=== PATIENT | male | born 1970 | race Caucasian/White ===

== ENCOUNTER 2017-03-13 11:48 | Inpatient (IN) | payer OTHER ==
[2017-03-13 12:20] VITALS: BMI 22.9
--- NOTE | 2017-03-13 15:42 | HP ---
CIWA Score - CIWA Score Nausea/Vomitin Muscle Tremors: 3 Anxiety: 4-Mod. Anxious/Guarded Agitation: 3 Paroxysmal Sweats: 3 Orientation: 3-Disoriented Date>2 days Tacttile Disturbances: 0-None Auditory Disturbances: 0-None Visual Disturbances: 0-None Headache: 0-None Present CIWA-Ar Total Score: 18 Admission ROS [facility] - HPI Chief Complaint: Withdrawal sx. Allergies/Adverse Reactions: Allergies Allergy/AdvReac Type Severity Reaction Status Date / Time No Known Allergies Allergy Verified 03/13/17 15:35 History of Present Illness: 46 y/o man with a long hx. of alcoholism is admitted for detox. Pt. has been in previous detox & out-pt rehab with almost 1 yr. sober. Exam Limitations: No Limitations - Ebola screening Have you traveled outside of the country in the last 21 days: No (N) Have you had contact with anyone from an Ebola affected area: No Have you been sick,other than usual withdrawal symptoms: No Do you have a fever: No - Review of Systems Constitutional: Diaphoresis EENT: reports: No Symptoms Reported Respiratory: reports: No Symptoms reported Cardiac: reports: No Symptoms Reported GI: reports: Nausea, Abdominal cramping : reports: No Symptoms Reported Musculoskeletal: reports: No Symptoms Reported Integumentary: reports: Sweating Neuro: reports: Tremors Endocrine: reports: No Symptoms Reported Hematology: reports: No Symptoms Reported Psychiatric: reports: No Sypmtoms Reported Other Systems: Reviewed and Negative Patient History - Patient Medical History Hx Anemia: No Hx Asthma: No Hx Chronic Obstructive Pulmonary Disease (COPD): No Hx Cancer: No Hx Cardiac Disorders: No Hx Congestive Heart Failure: No Hx Hypertension: No Hx Hypercholesterolemia: No Hx Pacemaker: No HX Cerebrovascular Accident: No Hx Seizures: No Hx Dementia: No Hx Diabetes: No Hx Gastrointestinal Disorders: No Hx Liver Disease: No Hx Genitourinary Disorders: No Hx Sexually Transmitted Disorders: No Hx Renal Disease (ESRD): No Hx Thyroid Disease: No Hx Human Immunodeficiency Virus (HIV): No Hx Hepatitis C: No Hx Depression: Yes (no meds) Hx Suicide Attempt: No Hx Bipolar Disorder: No Hx Schizophrenia: No - Patient Surgical History Past Surgical History: No - PPD History Previous Implant?: Yes Documented Results: Positive w/o proof Implanted On Prior [facility] Admission?: No PPD to be Administered?: No - Smoking Cessation Smoking history: Current every day smoker Aproximately how many cigarettes per day: 15 Hx Chewing Tobacco Use: No Initiated information on smoking cessation: Yes 'Breaking Loose' booklet given: 03/13/17 - Substance & Tx. History Hx Alcohol Use: Yes Hx Substance Use: Yes Substance Use Type: Alcohol, Cocaine Hx Substance Use Treatment: Yes (Alcohol & Cocaine detox, last ?) - Substances Abused Alcohol Route: Oral Frequency: Daily Amount used: Rum 2 pints Age of first use: 18 Date of Last Use: 03/13/17 Cocaine Route: Inhalation Frequency: Daily Amount used: 1-2 gm Age of first use: 20 Date of Last Use: 03/13/17 Family Disease History - Family Disease History Family Disease History: Diabetes: Grandparent (prostate), Heart Disease: Mother (HTN), CA: Grandparent Admission Physical Exam [facility] - Vital Signs Vital Signs: Vital Signs - 24 hr 03/13/17 12:17 Temperature 96.6 F L Pulse Rate 91 H Respiratory 18 Rate Blood Pressure 111/72 - Physical General Appearance: Yes: Alcohol on Breath, Tremorous, Irritable, Sweating, Anxious HEENTM: Yes: Within Normal Limits Respiratory: Yes: Chest Non-Tender, Lungs Clear, Normal Breath Sounds Neck: Yes: Supple Breast: Yes: Breast Exam Deferred Cardiology: Yes: Regular Rhythm, Regular Rate, S1, S2 Abdominal: Yes: Normal Bowel Sounds, Non Tender, Flat Genitourinary: Yes: Within Normal Limits Back: Yes: Within Normal Limits Musculoskeletal: Yes: Within Normal Limits Extremities: Yes: Tremors Neurological: Yes: Fully Oriented, Alert Integumentary: Yes: Diaphoresis Lymphatic: Yes: Within Normal Limits - Diagnostic (1) Alcohol dependence with uncomplicated withdrawal Current Visit: Yes Status: Acute (2) Cocaine dependence, uncomplicated Current Visit: Yes Status: Acute Cleared for Admission [facility] - Detox or Rehab [facility] Level of Care: Medically Managed Detox Regimen/Protocol: Librium [facility] Breath Alcohol Content Breath Alcohol Content: 30 Urine Drug Screen - Results Drug Screen Negative: No Urine Drug Screen Results: ELSA-Cocaine, BZO-Benzodiazepines
[2017-03-13] MEDS ORDERED: MAG HYDROX/AL HYDROX/SIMETH 30 ML UNIT-DOSE CUP PO PRN (15:51)
[2017-03-13] MEDS ORDERED: MAGNESIUM HYDROX 2400MG/30ML ORAL SUSPENSION 30 ML CUP PO PRN (15:51)
[2017-03-13] MEDS ORDERED: MENTHOL/PHENOL 1 EACH UD MM PRN (15:51)
[2017-03-13] MEDS ORDERED: chlordiazePOXIDE HCL 25 MG CAPSULE PO PRN (15:51)
[2017-03-13] MEDS ORDERED: chlordiazePOXIDE HCL 25 MG CAPSULE PO ONE (15:51)
[2017-03-13] MEDS ORDERED: P-EPHED 60MG/TRIPROLIDI 2.5MG TABLET PO PRN (15:51)
[2017-03-13] MEDS ORDERED: hydrOXYzine PAMOATE 50 MG CAPSULE (FP) PO PRN (15:51)
[2017-03-13] MEDS ORDERED: ACETAMINOPHEN 325 MG TABLET (FP) PO PRN (15:51)
[2017-03-13] MEDS ORDERED: guaiFENesin/D-METHORPHAN HB 10 ML UNIT-DOSE CUPS PO PRN (15:51)
[2017-03-13] MEDS ORDERED: NICOTINE POLACRILEX 2 MG GUM BC PRN (15:51)
[2017-03-13] MEDS ORDERED: MAGNESIUM CITRATE 300 ML BOTTLE PO PRN (15:51)
[2017-03-13] MEDS ORDERED: IBUPROFEN 400 MG TABLET (FP) PO PRN (15:51)
[2017-03-13] MEDS ORDERED: LOPERAMIDE HCL 2 MG CAPSULE PO PRN (15:51)
[2017-03-13] MEDS: chlordiazePOXIDE HCL 25 MG CAPSULE PO SCH ×2 (18:39→22:27)
[2017-03-13] MEDS: NICOTINE 21 MG/24 HOURS TOPICAL PATCH TD SCH (18:41)
[2017-03-13] MEDS: THIAMINE HCL 100 MG TABLET (FP) PO SCH (22:27)
[2017-03-14] MEDS: chlordiazePOXIDE HCL 25 MG CAPSULE PO SCH ×4 (06:09→22:59)
[2017-03-14 10:32] LABS: HEMATOCRIT 44.4 % (35.4-49); HEMOGLOBIN 15.3 GM/dL (11.7-16.9); MCH 29.9 pg (25.7-33.7); MCHC 34.4 g/dl (32.0-35.9); MEAN PLT VOLUME 8.8 fl (7.5-11.1); PLATELET COUNT 278 K/MM3 (134-434); RBC 5.11 M/mm3 (4.00-5.60); RDW 14.9 % (11.9-15.9); WHITE BLOOD COUNT 7.1 K/mm3 (4.0-10.0)
[2017-03-14] MEDS: PRENATAL VITAMINS W/ FOLIC ACID TABLET (FP) PO SCH (10:40)
[2017-03-14] MEDS: NICOTINE 21 MG/24 HOURS TOPICAL PATCH TD SCH (10:40)
[2017-03-14 10:48] LABS: ALBUMIN 3.4 g/dl (3.4-5.0); ALK PHOS 55 U/L (45-117); ANION GAP 6 (8-16); BILIRUBIN,TOTAL 1.3 mg/dL (0.2-1.0); BLOOD UREA NITROGEN 18 mg/dL (7-18); CALCIUM 8.3 mg/dL (8.5-10.1); CHLORIDE 105 mmol/L (98-107); CO2 30 mmol/L (21-32); GLUCOSE,RANDOM 80 mg/dL (74-106); POTASSIUM 3.8 mmol/L (3.5-5.1); SGOT/AST 203 U/L (15-37); SGPT/ALT 104 U/L (12-78); SODIUM 141 mmol/L (136-145); TOT PROT 7.2 g/dl (6.4-8.2)
[2017-03-14 12:33] LABS: URINE APPEARANCE CLEAR; URINE BILIRUBIN NEGATIVE (NEGATIVE); URINE BLOOD NEGATIVE (NEGATIVE); URINE COLOR DKYELLOW; URINE GLUCOSE (UA) NEGATIVE (NEGATIVE); URINE KETONE NEGATIVE (NEGATIVE); URINE LEUK ESTERASE NEGATIVE (NEGATIVE); URINE NITRITE NEGATIVE (NEGATIVE); URINE PROTEIN NEGATIVE (NEGATIVE)
--- NOTE | 2017-03-14 12:52 | EKG ---
Test Reason : Blood Pressure : / mmHG Vent. Rate : 083 BPM Atrial Rate : 083 BPM P-R Int : 154 ms QRS Dur : 084 ms QT Int : 402 ms P-R-T Axes : 070 073 062 degrees QTc Int : 472 ms NORMAL SINUS RHYTHM POSSIBLE LEFT ATRIAL ENLARGEMENT LEFT VENTRICULAR HYPERTROPHY ABNORMAL ECG NO PREVIOUS ECGS AVAILABLE Confirmed by Enrike Mclean ([id number]) on 03/14/2017 12:52:28 PM Referred By: Confirmed By:Enrike Mclean
--- NOTE | 2017-03-14 15:56 | PN ---
S CIWA - CIWA Score Nausea/Vomitin Muscle Tremors: 3 Anxiety: 4-Mod. Anxious/Guarded Agitation: 4-Moderately Restless Paroxysmal Sweats: 3 Orientation: 0-Oriented Tacttile Disturbances: 0-None Auditory Disturbances: 0-None Visual Disturbances: 0-None Headache: 0-None Present CIWA-Ar Total Score: 17 [facility] Progress Note (SOAP) Subjective: Agitated, anxious, interrupted sleep. Patient requesting to see psychiatrist for depression. Objective: 03/14/17 15:55 Last Vital Signs Temp Pulse Resp BP Pulse Ox 97.0 F L 87 18 101/70 03/14/17 13:24 03/14/17 13:24 03/14/17 13:24 03/14/17 13:24 Laboratory Tests 03/14/17 03/14/17 03/14/17 07:40 07:40 07:40 WBC 7.1 RBC 5.11 Hgb 15.3 Hct 44.4 MCV 87.0 MCH 29.9 MCHC 34.4 RDW 14.9 Plt Count 278 MPV 8.8 Sodium 141 Potassium 3.8 Chloride 105 Carbon Dioxide 30 Anion Gap 6 L BUN 18 Creatinine 1.0 Creat Clearance w eGFR > 60 Random Glucose 80 Calcium 8.3 L Total Bilirubin 1.3 H AST 203 H ALT 104 H Alkaline Phosphatase 55 Total Protein 7.2 Albumin 3.4 Urine Color Urine Appearance Urine pH Ur Specific [place] Urine Protein Urine Glucose (UA) Urine Ketones Urine Blood Urine Nitrite Urine Bilirubin Urine Urobilinogen Ur Leukocyte Esterase RPR Titer Nonreactive HIV 1&2 Antibody Screen HIV P24 Antigen 03/14/17 03/14/17 07:40 10:56 WBC RBC Hgb Hct MCV MCH MCHC RDW Plt Count MPV Sodium Potassium Chloride Carbon Dioxide Anion Gap BUN Creatinine Creat Clearance w eGFR Random Glucose Calcium Total Bilirubin AST ALT Alkaline Phosphatase Total Protein Albumin Urine Color Dkyellow Urine Appearance Clear Urine pH 5.0 Ur Specific [place] 1.030 Urine Protein Negative Urine Glucose (UA) Negative Urine Ketones Negative Urine Blood Negative Urine Nitrite Negative Urine Bilirubin Negative Urine Urobilinogen 2.0 Ur Leukocyte Esterase Negative RPR Titer HIV 1&2 Antibody Screen Negative HIV P24 Antigen Negative Labs noted: AST/ALT elevated (denies h/o hepatitis C) Assessment: 03/14/17 15:55 Withdrawal symptoms Noted with elevated LFTs Plan: Continue detox Elevated LFTs: repeat AST/ALT, send hepatitis c panel
[2017-03-14] MEDS: THIAMINE HCL 100 MG TABLET (FP) PO SCH (22:59)
[2017-03-15] MEDS: chlordiazePOXIDE HCL 25 MG CAPSULE PO SCH ×2 (05:41→10:51)
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
[2017-03-15] MEDS: NICOTINE 21 MG/24 HOURS TOPICAL PATCH TD SCH (10:51)
[2017-03-15] MEDS: PRENATAL VITAMINS W/ FOLIC ACID TABLET (FP) PO SCH (10:51)
--- NOTE | 2017-03-15 12:23 | PN ---
[facility] CIWA - CIWA Score Nausea/Vomitin-No Nausea/No Vomiting Muscle Tremors: 4-Moderate,w/Arms Extend Anxiety: 3 Agitation: 3 Paroxysmal Sweats: 3 Orientation: 0-Oriented Tacttile Disturbances: 2-Mild Itch/Numbness/Burn Auditory Disturbances: 0-None Visual Disturbances: 3-Moderate Sensitivity Headache: 0-None Present CIWA-Ar Total Score: 18 S Progress Note (SOAP) Subjective: Interrupted Sleep, Fatigue, Body Aches, Tremors. Objective: PT. A & O X 3, OBSERVED AMBULATING ON UNIT. NO ACUTE DISTRESS. 03/15/17 12:22 Vital Signs Temperature 96.5 F L 03/15/17 09:35 Pulse Rate 79 03/15/17 09:35 Respiratory Rate 18 03/15/17 09:35 Blood Pressure 103/66 03/15/17 09:35 O2 Sat by Pulse Oximetry (%) Laboratory Tests 03/14/17 03/14/17 03/14/17 07:40 07:40 07:40 WBC 7.1 RBC 5.11 Hgb 15.3 Hct 44.4 MCV 87.0 MCH 29.9 MCHC 34.4 RDW 14.9 Plt Count 278 MPV 8.8 Sodium 141 Potassium 3.8 Chloride 105 Carbon Dioxide 30 Anion Gap 6 L BUN 18 Creatinine 1.0 Creat Clearance w eGFR > 60 Random Glucose 80 Calcium 8.3 L Total Bilirubin 1.3 H AST 203 H ALT 104 H Alkaline Phosphatase 55 Total Protein 7.2 Albumin 3.4 Urine Color Urine Appearance Urine pH Ur Specific [place] Urine Protein Urine Glucose (UA) Urine Ketones Urine Blood Urine Nitrite Urine Bilirubin Urine Urobilinogen Ur Leukocyte Esterase RPR Titer Nonreactive HIV 1&2 Antibody Screen HIV P24 Antigen 03/14/17 03/14/17 07:40 10:56 WBC RBC Hgb Hct MCV MCH MCHC RDW Plt Count MPV Sodium Potassium Chloride Carbon Dioxide Anion Gap BUN Creatinine Creat Clearance w eGFR Random Glucose Calcium Total Bilirubin AST ALT Alkaline Phosphatase Total Protein Albumin Urine Color Dkyellow Urine Appearance Clear Urine pH 5.0 Ur Specific [place] 1.030 Urine Protein Negative Urine Glucose (UA) Negative Urine Ketones Negative Urine Blood Negative Urine Nitrite Negative Urine Bilirubin Negative Urine Urobilinogen 2.0 Ur Leukocyte Esterase Negative RPR Titer HIV 1&2 Antibody Screen Negative HIV P24 Antigen Negative LABS NOTED. HCV AB RESULTS AND RESULTS OF REPEAT AST, ALT PENDING. 03/15/17 12:23 Assessment: 03/15/17 12:22 WITHDRAWAL SYMPTOMS. Plan: CONTINUED DETOX. INCREASE DAILY PO FLUID INTAKE.
[2017-03-15] MEDS: chlordiazePOXIDE 5 MG CAPSULE PO SCH ×2 (17:25→22:41)
[2017-03-15 17:51] LABS: SGOT/AST 108 U/L (15-37); SGPT/ALT 89 U/L (12-78)
[2017-03-15] MEDS: ZOLPIDEM TARTRATE 10 MG TABLET (PARK CARE ONLY) PO PRN (22:41)
[2017-03-15] MEDS: THIAMINE HCL 100 MG TABLET (FP) PO SCH (22:41)
[2017-03-16] MEDS: chlordiazePOXIDE 5 MG CAPSULE PO SCH ×2 (06:43→10:49)
[2017-03-16] MEDS ORDERED: METHYL SALICYLATE/MENTHOL OINT 30 GM TUBE TP SCH (10:00)
[2017-03-16] MEDS: PRENATAL VITAMINS W/ FOLIC ACID TABLET (FP) PO SCH (10:49)
[2017-03-16] MEDS: NICOTINE 21 MG/24 HOURS TOPICAL PATCH TD SCH (10:49)
--- NOTE | 2017-03-16 14:01 | PN ---
[facility] Progress Note (SOAP) Subjective: Body Aches, Anxious, Fatigue. Objective: PT. A & O X 3, OBSERVED AMBULATING ON UNIT. NO ACUTE DISTRESS. 03/16/17 14:00 Vital Signs Temperature 97.4 F L 03/16/17 09:54 Pulse Rate 89 03/16/17 09:54 Respiratory Rate 18 03/16/17 09:54 Blood Pressure 117/74 03/16/17 09:54 O2 Sat by Pulse Oximetry (%) Laboratory Tests 03/14/17 03/14/17 03/14/17 07:40 07:40 07:40 WBC 7.1 RBC 5.11 Hgb 15.3 Hct 44.4 MCV 87.0 MCH 29.9 MCHC 34.4 RDW 14.9 Plt Count 278 MPV 8.8 Sodium 141 Potassium 3.8 Chloride 105 Carbon Dioxide 30 Anion Gap 6 L BUN 18 Creatinine 1.0 Creat Clearance w eGFR > 60 Random Glucose 80 Calcium 8.3 L Total Bilirubin 1.3 H AST 203 H ALT 104 H Alkaline Phosphatase 55 Total Protein 7.2 Albumin 3.4 Urine Color Urine Appearance Urine pH Ur Specific [place] Urine Protein Urine Glucose (UA) Urine Ketones Urine Blood Urine Nitrite Urine Bilirubin Urine Urobilinogen Ur Leukocyte Esterase RPR Titer Nonreactive Hepatitis C Antibody HIV 1&2 Antibody Screen HIV P24 Antigen 03/14/17 03/14/17 03/15/17 07:40 10:56 09:00 WBC RBC Hgb Hct MCV MCH MCHC RDW Plt Count MPV Sodium Potassium Chloride Carbon Dioxide Anion Gap BUN Creatinine Creat Clearance w eGFR Random Glucose Calcium Total Bilirubin AST 108 H D ALT 89 H Alkaline Phosphatase Total Protein Albumin Urine Color Dkyellow Urine Appearance Clear Urine pH 5.0 Ur Specific [place] 1.030 Urine Protein Negative Urine Glucose (UA) Negative Urine Ketones Negative Urine Blood Negative Urine Nitrite Negative Urine Bilirubin Negative Urine Urobilinogen 2.0 Ur Leukocyte Esterase Negative RPR Titer Hepatitis C Antibody HIV 1&2 Antibody Screen Negative HIV P24 Antigen Negative 03/15/17 09:00 WBC RBC Hgb Hct MCV MCH MCHC RDW Plt Count MPV Sodium Potassium Chloride Carbon Dioxide Anion Gap BUN Creatinine Creat Clearance w eGFR Random Glucose Calcium Total Bilirubin AST ALT Alkaline Phosphatase Total Protein Albumin Urine Color Urine Appearance Urine pH Ur Specific [place] Urine Protein Urine Glucose (UA) Urine Ketones Urine Blood Urine Nitrite Urine Bilirubin Urine Urobilinogen Ur Leukocyte Esterase RPR Titer Hepatitis C Antibody 0.1 HIV 1&2 Antibody Screen HIV P24 Antigen LABS NOTED. Assessment: 03/16/17 14:01 WITHDRAWAL SYMPTOMS. Plan: CONTINUE DETOX.
[2017-03-16] MEDS: chlordiazePOXIDE HCL 10 MG CAPSULE PO SCH ×2 (18:01→22:17)
[2017-03-16] MEDS: THIAMINE HCL 100 MG TABLET (FP) PO SCH (22:17)
[2017-03-16] MEDS: ZOLPIDEM TARTRATE 10 MG TABLET (PARK CARE ONLY) PO PRN (22:17)
[2017-03-17] MEDS: chlordiazePOXIDE HCL 10 MG CAPSULE PO SCH (05:40)
[2017-03-17 06:09] VITALS: BP 125/76; PULSE 74; TEMP 98
--- NOTE | 2017-03-17 14:18 | DS ---
[facility] Detox Discharge Summary Admission Date: 03/13/17 Discharge Date: 03/17/17 - History Present History: Alcohol Dependence, Cocaine Dependence Additional Comments: PATIENT GOING HOME. PATIENT ADVISED TO CONSIDER LOCAL 12-STEP / NA / AA OUTPATIENT SUPPORT GROUPS FOR AFTERCARE. PATIENT WAS DISCAHRGED FROM DETOX UNIT IN STABLE MEDICAL CONDITION. Pertinent Past History: Insomnia, Depression. - Physical Exam Results Vital Signs: Vital Signs Temperature 98 F 03/17/17 06:09 Pulse Rate 74 03/17/17 06:09 Respiratory Rate 18 03/17/17 06:09 Blood Pressure 125/76 03/17/17 06:09 O2 Sat by Pulse Oximetry (%) Pertinent Admission Physical Exam Findings: WITHDRAWAL SYMPTOMS. Laboratory Tests 03/14/17 03/14/17 03/14/17 07:40 07:40 07:40 WBC 7.1 RBC 5.11 Hgb 15.3 Hct 44.4 MCV 87.0 MCH 29.9 MCHC 34.4 RDW 14.9 Plt Count 278 MPV 8.8 Sodium 141 Potassium 3.8 Chloride 105 Carbon Dioxide 30 Anion Gap 6 L BUN 18 Creatinine 1.0 Creat Clearance w eGFR > 60 Random Glucose 80 Calcium 8.3 L Total Bilirubin 1.3 H AST 203 H ALT 104 H Alkaline Phosphatase 55 Total Protein 7.2 Albumin 3.4 Urine Color Urine Appearance Urine pH Ur Specific [place] Urine Protein Urine Glucose (UA) Urine Ketones Urine Blood Urine Nitrite Urine Bilirubin Urine Urobilinogen Ur Leukocyte Esterase RPR Titer Nonreactive Hepatitis C Antibody HIV 1&2 Antibody Screen HIV P24 Antigen 03/14/17 03/14/17 03/15/17 07:40 10:56 09:00 WBC RBC Hgb Hct MCV MCH MCHC RDW Plt Count MPV Sodium Potassium Chloride Carbon Dioxide Anion Gap BUN Creatinine Creat Clearance w eGFR Random Glucose Calcium Total Bilirubin AST 108 H D ALT 89 H Alkaline Phosphatase Total Protein Albumin Urine Color Dkyellow Urine Appearance Clear Urine pH 5.0 Ur Specific [place] 1.030 Urine Protein Negative Urine Glucose (UA) Negative Urine Ketones Negative Urine Blood Negative Urine Nitrite Negative Urine Bilirubin Negative Urine Urobilinogen 2.0 Ur Leukocyte Esterase Negative RPR Titer Hepatitis C Antibody HIV 1&2 Antibody Screen Negative HIV P24 Antigen Negative 03/15/17 09:00 WBC RBC Hgb Hct MCV MCH MCHC RDW Plt Count MPV Sodium Potassium Chloride Carbon Dioxide Anion Gap BUN Creatinine Creat Clearance w eGFR Random Glucose Calcium Total Bilirubin AST ALT Alkaline Phosphatase Total Protein Albumin Urine Color Urine Appearance Urine pH Ur Specific [place] Urine Protein Urine Glucose (UA) Urine Ketones Urine Blood Urine Nitrite Urine Bilirubin Urine Urobilinogen Ur Leukocyte Esterase RPR Titer Hepatitis C Antibody 0.1 HIV 1&2 Antibody Screen HIV P24 Antigen LABS NOTED. - Treatment Hospital Course: Detox Protocol Followed, Detoxed Safely, Responded well, Discharged Condition Good Patient has Accepted a Rehab Referral to: PT GOING HOME; ADVISED TO CONSIDER LOCAL 12-STEP/NA/AA SUPPORT GROUPS. - Medication Discharge Medications: Ambulatory Orders NK [No Known Home Medication] 03/13/17 - Diagnosis (1) Alcohol dependence with uncomplicated withdrawal Status: Acute (2) Cocaine dependence, uncomplicated Status: Acute (3) Insomnia Status: Acute Qualifiers: Insomnia type: unspecified Qualified Code(s): G47.00 - Insomnia, unspecified - AMA Did Patient Leave Against Medical Advice: No
== END 2017-03-17 09:18 | disposition home or self-care (01) | DRG 774 ==
LOC: YASAS 11:48 → Y3N 16:19
PROVIDERS: ADMIT Internal Medicine; ATTEND Internal Medicine
PROC: HZ2ZZZZ Detoxification Services for Substance Abuse Treatment (ICD-10-PCS; principal; 2017-03-13)
DX: F10.230 Alcohol dependence with withdrawal, uncomplicated (principal); F14.20 Cocaine dependence, uncomplicated; F17.210 Nicotine dependence, cigarettes, uncomplicated; G47.00 Insomnia, unspecified; R94.5 Abnormal results of liver function studies
CPT/HCPCS: 36415; 71046-TC; 80053; 81003; 84450; 84460; 85027; 86593; 86803; 87389; 93005; 93010

== ENCOUNTER 2017-05-06 12:08 | Inpatient (IN) | payer OTHER ==
[2017-05-06 13:59] VITALS: BMI 24.2
--- NOTE | 2017-05-06 19:34 | HP ---
CIWA Score - CIWA Score Nausea/Vomitin-Mild Nausea/No Vomiting Muscle Tremors: 3 Anxiety: 4-Mod. Anxious/Guarded Agitation: 0-Normal Activity Paroxysmal Sweats: 1-Minimal Palms Moist Orientation: 1-Uncertain about Date Tacttile Disturbances: 1-Very Mild Itch/Numbness Auditory Disturbances: 3-Moderate Harsh/Frighten Visual Disturbances: 1-Very Mild Sensitivity Headache: 1-Very Mild CIWA-Ar Total Score: 16 Admission [facility] - HPI Chief Complaint: withdrawal symptoms. "I need to get my life back, I don't feel well, my mother is suffering too much and my family." Allergies/Adverse Reactions: Allergies Allergy/AdvReac Type Severity Reaction Status Date / Time No Known Allergies Allergy Verified 05/06/17 17:42 History of Present Illness: 47 yo male with hx of cocaine, alcohol and nicotine dependence is here seeking detox. PMHX: depression, insomnia and anxiety. Longest period of sobriety 1 year during 2009 while connected to a [employer] group. Denies history of overdose, or seizures, or blackouts. Last detox [facility] 2017 - 03/17/2017. Denies suicidal / homicidal ideation or suicide attempts. Exam Limitations: No Limitations - Ebola screening Have you traveled outside of the country in the last 21 days: No Have you had contact with anyone from an Ebola affected area: No Have you been sick,other than usual withdrawal symptoms: No Do you have a fever: No - Review of Systems Constitutional: Chills, Loss of Appetite, Changes in sleep EENT: reports: Blurred Vision (uses glasses) Respiratory: reports: No Symptoms reported Cardiac: reports: No Symptoms Reported GI: reports: Nausea, Poor Appetite, Poor Fluid Intake : reports: No Symptoms Reported Musculoskeletal: reports: Joint Pain (chronic back, shoulder pain , reports pain relieve with drinking alcohol) Integumentary: reports: No Symptoms Reported Neuro: reports: Weakness Endocrine: reports: Excessive Sweating Hematology: reports: No Symptoms Reported Psychiatric: reports: Orientated x3, Anxious, Depressed Other Systems: Reviewed and Negative Patient History - Patient Medical History Hx Anemia: No Hx Asthma: No Hx Chronic Obstructive Pulmonary Disease (COPD): No Hx Cancer: No Hx Cardiac Disorders: No Hx Congestive Heart Failure: No Hx Hypertension: No Hx Hypercholesterolemia: No Hx Pacemaker: No HX Cerebrovascular Accident: No Hx Seizures: No Hx Dementia: No Hx Diabetes: No Hx Gastrointestinal Disorders: No Hx Liver Disease: No Hx Genitourinary Disorders: No Hx Sexually Transmitted Disorders: No Hx Renal Disease (ESRD): No Hx Thyroid Disease: No Hx Human Immunodeficiency Virus (HIV): No (Last tested March 2017) Hx Hepatitis C: No Hx Depression: Yes (no meds) Hx Suicide Attempt: No Hx Bipolar Disorder: No Hx Schizophrenia: No - Patient Surgical History Past Surgical History: No Hx Neurologic Surgery: No Hx Cataract Extraction: No Hx Cardiac Surgery: No Hx Lung Surgery: No Hx Breast Surgery: No Hx Breast Biopsy: No Hx Abdominal Surgery: No Hx Appendectomy: No Hx Cholecystectomy: No Hx Genitourinary Surgery: No Hx Section: No Hx Orthopedic Surgery: No Anesthesia Reaction: No - PPD History Previous Implant?: No - Smoking Cessation Smoking history: Current every day smoker Aproximately how many cigarettes per day: 15 Hx Chewing Tobacco Use: No Initiated information on smoking cessation: Yes 'Breaking Loose' booklet given: 05/06/17 - Substance & Tx. History Hx Alcohol Use: Yes Hx Substance Use: Yes Substance Use Type: Alcohol, Cocaine Hx Substance Use Treatment: Yes ([facility] 03/13/17 - 03/17/2017) - Substances Abused Cocaine Route: Smoking Frequency: Daily Amount used: 3 bags Age of first use: 19 Date of Last Use: 05/04/17 Alcohol Route: Oral Frequency: Daily Amount used: 12/15oz beer Age of first use: 16 Date of Last Use: 05/05/17 Family Disease History - Family Disease History Family Disease History: Diabetes: Grandparent (prostate), Heart Disease: Mother (HTN), [place]: Grandparent Admission Physical Exam S - Vital Signs Vital Signs: Vital Signs - 24 hr 05/06/17 13:57 Temperature 96 F L Pulse Rate 80 Respiratory 19 Rate Blood Pressure 116/78 - Physical General Appearance: Yes: Disheveled - Diagnostic (1) Anxious mood Current Visit: Yes Status: Acute (2) Alcohol dependence with uncomplicated withdrawal Current Visit: No Status: Acute (3) Cocaine dependence, uncomplicated Current Visit: No Status: Acute (4) Insomnia Current Visit: No Status: Acute Qualifiers: Insomnia type: unspecified Qualified Code(s): G47.00 - Insomnia, unspecified Cleared for Admission [facility] - Detox or Rehab [facility] Level of Care: Medically Managed Detox Regimen/Protocol: Librium [facility] Breath Alcohol Content Breath Alcohol Content: 0 Urine Drug Screen - Results Drug Screen Negative: No Urine Drug Screen Results: ELSA-Cocaine, BZO-Benzodiazepines
[2017-05-06] MEDS ORDERED: guaiFENesin/D-METHORPHAN HB 10 ML UNIT-DOSE CUPS PO PRN (20:00)
[2017-05-06] MEDS ORDERED: NICOTINE POLACRILEX 2 MG GUM BUC PRN (20:00)
[2017-05-06] MEDS ORDERED: LOPERAMIDE HCL 2 MG CAPSULE PO PRN (20:00)
[2017-05-06] MEDS ORDERED: ACETAMINOPHEN 325 MG TABLET (FP) PO PRN (20:00)
[2017-05-06] MEDS ORDERED: MAGNESIUM HYDROX 2400MG/30ML ORAL SUSPENSION 30 ML CUP PO PRN (20:00)
[2017-05-06] MEDS ORDERED: P-EPHED 60MG/TRIPROLIDI 2.5MG TABLET PO PRN (20:00)
[2017-05-06] MEDS ORDERED: MENTHOL/PHENOL 1 EACH UD MM PRN (20:00)
[2017-05-06] MEDS ORDERED: IBUPROFEN 400 MG TABLET (FP) PO PRN (20:00)
[2017-05-06] MEDS ORDERED: hydrOXYzine PAMOATE 50 MG CAPSULE (FP) PO PRN (20:00)
[2017-05-06] MEDS ORDERED: chlordiazePOXIDE HCL 25 MG CAPSULE PO PRN (20:00)
[2017-05-06] MEDS ORDERED: MAG HYDROX/AL HYDROX/SIMETH 30 ML UNIT-DOSE CUP PO PRN (20:00)
[2017-05-06] MEDS ORDERED: MAGNESIUM CITRATE 300 ML BOTTLE PO PRN (20:00)
[2017-05-06] MEDS ORDERED: chlordiazePOXIDE HCL 25 MG CAPSULE PO ONE (20:00)
[2017-05-06] MEDS: chlordiazePOXIDE HCL 25 MG CAPSULE PO SCH (21:53)
[2017-05-06] MEDS: THIAMINE HCL 100 MG TABLET (FP) PO SCH (21:53)
[2017-05-07 00:33] LABS: URINE APPEARANCE CLEAR; URINE BILIRUBIN NEGATIVE (NEGATIVE); URINE BLOOD NEGATIVE (NEGATIVE); URINE COLOR LTYELLOW; URINE GLUCOSE (UA) NEGATIVE (NEGATIVE); URINE KETONE NEGATIVE (NEGATIVE); URINE LEUK ESTERASE NEGATIVE (NEGATIVE); URINE NITRITE NEGATIVE (NEGATIVE); URINE PROTEIN NEGATIVE (NEGATIVE); URINE UROBILINOGEN NEGATIVE mg/dL (0.2-1.0)
[2017-05-07] MEDS: chlordiazePOXIDE HCL 25 MG CAPSULE PO SCH ×4 (05:58→22:14)
[2017-05-07] MEDS: PRENATAL VITAMINS W/ FOLIC ACID TABLET (FP) PO SCH (10:08)
[2017-05-07] MEDS: NICOTINE 14 MG/24 HOURS TOPICAL PATCH TD SCH (10:10)
[2017-05-07 10:14] LABS: HEMATOCRIT 39.7 % (35.4-49); HEMOGLOBIN 14.4 GM/dL (11.7-16.9); MCH 31.2 pg (25.7-33.7); MCHC 36.3 g/dl (32.0-35.9); MEAN PLT VOLUME 8.9 fl (7.5-11.1); PLATELET COUNT 258 K/MM3 (134-434); RBC 4.62 M/mm3 (4.00-5.60); RDW 13.9 % (11.9-15.9); WHITE BLOOD COUNT 5.2 K/mm3 (4.0-10.0)
[2017-05-07 10:25] LABS: ALBUMIN 3.2 g/dl (3.4-5.0); ANION GAP 6 (8-16); BILIRUBIN,TOTAL 0.6 mg/dL (0.2-1.0); BLOOD UREA NITROGEN 9 mg/dL (7-18); CHLORIDE 107 mmol/L (98-107); CO2 29 mmol/L (21-32); CREATININE 0.9 mg/dL (0.7-1.3); GLUCOSE,RANDOM 106 mg/dL (74-106); POTASSIUM 3.7 mmol/L (3.5-5.1); SGOT/AST 18 U/L (15-37); SGPT/ALT 21 U/L (12-78); SODIUM 142 mmol/L (136-145); TOT PROT 6.6 g/dl (6.4-8.2)
[2017-05-07 10:26] LABS: ALK PHOS 47 U/L (45-117)
--- NOTE | 2017-05-07 11:57 | PN ---
S CIWA - CIWA Score Nausea/Vomitin Muscle Tremors: 2 Anxiety: 3 Agitation: 2 Paroxysmal Sweats: 3 Orientation: 0-Oriented Tacttile Disturbances: 1-Very Mild Itch/Numbness Auditory Disturbances: 0-None Visual Disturbances: 0-None Headache: 0-None Present CIWA-Ar Total Score: 13 S Progress Note (SOAP) Subjective: interrupted sleep, sweats, anxious Objective: 05/07/17 11:56 Vital Signs Temperature 96.8 F L 05/07/17 10:34 Pulse Rate 71 05/07/17 10:34 Respiratory Rate 18 05/07/17 10:34 Blood Pressure 121/69 05/07/17 10:34 O2 Sat by Pulse Oximetry (%) Laboratory Tests 05/07/17 05/07/17 05/07/17 00:05 08:00 08:00 WBC 5.2 RBC 4.62 Hgb 14.4 Hct 39.7 MCV 86.0 MCH 31.2 MCHC 36.3 H RDW 13.9 Plt Count 258 MPV 8.9 Sodium 142 Potassium 3.7 Chloride 107 Carbon Dioxide 29 Anion Gap 6 L BUN 9 D Creatinine 0.9 Creat Clearance w eGFR > 60 Random Glucose 106 D Calcium 8.0 L Total Bilirubin 0.6 D AST 18 D ALT 21 D Alkaline Phosphatase 47 Total Protein 6.6 Albumin 3.2 L Urine Color Ltyellow Urine Appearance Clear Urine pH 9.0 H D Ur Specific [place] 1.011 Urine Protein Negative Urine Glucose (UA) Negative Urine Ketones Negative Urine Blood Negative Urine Nitrite Negative Urine Bilirubin Negative Urine Urobilinogen Negative Ur Leukocyte Esterase Negative RPR Titer 05/07/17 08:00 WBC RBC Hgb Hct MCV MCH MCHC RDW Plt Count MPV Sodium Potassium Chloride Carbon Dioxide Anion Gap BUN Creatinine Creat Clearance w eGFR Random Glucose Calcium Total Bilirubin AST ALT Alkaline Phosphatase Total Protein Albumin Urine Color Urine Appearance Urine pH Ur Specific [place] Urine Protein Urine Glucose (UA) Urine Ketones Urine Blood Urine Nitrite Urine Bilirubin Urine Urobilinogen Ur Leukocyte Esterase RPR Titer Nonreactive pt aox3 in nad ambulating Assessment: 05/07/17 11:56 saturnino sx;s Plan: cont detox increase fluids reassurance
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
--- NOTE | 2017-05-07 15:10 | EKG ---
Test Reason : Blood Pressure : / mmHG Vent. Rate : 068 BPM Atrial Rate : 068 BPM P-R Int : 176 ms QRS Dur : 082 ms QT Int : 400 ms P-R-T Axes : 063 052 044 degrees QTc Int : 425 ms NORMAL SINUS RHYTHM POSSIBLE LEFT ATRIAL ENLARGEMENT LEFT VENTRICULAR HYPERTROPHY EARLY REPOLARIZATION ABNORMAL ECG WHEN COMPARED WITH ECG OF 13-MAR-2017 18:52, NO SIGNIFICANT CHANGE WAS FOUND Confirmed by JIMBO BROWN MD ([id number]) on 05/07/2017 3:10:13 PM Referred By: Confirmed By:JIMBO BROWN MD
[2017-05-07] MEDS: THIAMINE HCL 100 MG TABLET (FP) PO SCH (22:14)
[2017-05-07] MEDS: ZOLPIDEM TARTRATE 10 MG TABLET (PARK CARE ONLY) PO PRN (22:14)
[2017-05-08] MEDS: chlordiazePOXIDE HCL 25 MG CAPSULE PO SCH ×3 (06:32→18:25)
[2017-05-08] MEDS: NICOTINE 14 MG/24 HOURS TOPICAL PATCH TD SCH (12:02)
[2017-05-08] MEDS: PRENATAL VITAMINS W/ FOLIC ACID TABLET (FP) PO SCH (12:02)
--- NOTE | 2017-05-08 14:17 | PN ---
S CIWA - CIWA Score Nausea/Vomitin Muscle Tremors: 3 Anxiety: 3 Agitation: 3 Paroxysmal Sweats: 1-Minimal Palms Moist Orientation: 0-Oriented Tacttile Disturbances: 1-Very Mild Itch/Numbness Auditory Disturbances: 1-Very Mild Visual Disturbances: 0-None Headache: 2-Mild CIWA-Ar Total Score: 17 BHS Progress Note (SOAP) Subjective: ALERT,IRRITABLE,ANXIOUS,INTERRUPTED SLEEP,TREMOR Objective: 05/08/17 14:15 Vital Signs Temperature 96.4 F L 05/08/17 13:57 Pulse Rate 75 05/08/17 13:57 Respiratory Rate 20 05/08/17 13:57 Blood Pressure 132/77 05/08/17 13:57 O2 Sat by Pulse Oximetry (%) 05/08/17 14:16 Laboratory Last Values WBC 5.2 K/mm3 (4.0-10.0) 05/07/17 08:00 RBC 4.62 M/mm3 (4.00-5.60) 05/07/17 08:00 Hgb 14.4 GM/dL (11.7-16.9) 05/07/17 08:00 Hct 39.7 % (35.4-49) 05/07/17 08:00 MCV 86.0 fl (80-96) 05/07/17 08:00 MCH 31.2 pg (25.7-33.7) 05/07/17 08:00 MCHC 36.3 g/dl (32.0-35.9) H 05/07/17 08:00 RDW 13.9 % (11.9-15.9) 05/07/17 08:00 Plt Count 258 K/MM3 (134-434) 05/07/17 08:00 MPV 8.9 fl (7.5-11.1) 05/07/17 08:00 Sodium 142 mmol/L (136-145) 05/07/17 08:00 Potassium 3.7 mmol/L (3.5-5.1) 05/07/17 08:00 Chloride 107 mmol/L (98-107) 05/07/17 08:00 Carbon Dioxide 29 mmol/L (21-32) 05/07/17 08:00 Anion Gap 6 (8-16) L 05/07/17 08:00 BUN 9 mg/dL (7-18) D 05/07/17 08:00 Creatinine 0.9 mg/dL (0.7-1.3) 05/07/17 08:00 Creat Clearance w eGFR > 60 (>60) 05/07/17 08:00 Random Glucose 106 mg/dL (74-106) D 05/07/17 08:00 Calcium 8.0 mg/dL (8.5-10.1) L 05/07/17 08:00 Total Bilirubin 0.6 mg/dL (0.2-1.0) D 05/07/17 08:00 AST 18 U/L (15-37) D 05/07/17 08:00 ALT 21 U/L (12-78) D 05/07/17 08:00 Alkaline Phosphatase 47 U/L (45-117) 05/07/17 08:00 Total Protein 6.6 g/dl (6.4-8.2) 05/07/17 08:00 Albumin 3.2 g/dl (3.4-5.0) L 05/07/17 08:00 Urine Color Ltyellow 05/07/17 00:05 Urine Appearance Clear 05/07/17 00:05 Urine pH 9.0 (5.0-8.0) H D 05/07/17 00:05 Ur Specific [place] 1.011 (1.001-1.035) 05/07/17 00:05 Urine Protein Negative (NEGATIVE) 05/07/17 00:05 Urine Glucose (UA) Negative (NEGATIVE) 05/07/17 00:05 Urine Ketones Negative (NEGATIVE) 05/07/17 00:05 Urine Blood Negative (NEGATIVE) 05/07/17 00:05 Urine Nitrite Negative (NEGATIVE) 05/07/17 00:05 Urine Bilirubin Negative (NEGATIVE) 05/07/17 00:05 Urine Urobilinogen Negative mg/dL (0.2-1.0) 05/07/17 00:05 Ur Leukocyte Esterase Negative (NEGATIVE) 05/07/17 00:05 RPR Titer Nonreactive (NONREACTIVE) 05/07/17 08:00 Hep C Ab Diagnostic 0.1 s/co ratio (0.0-0.9) 05/07/17 08:00 Assessment: 05/08/17 14:17 WITHDRAWAL SYMPTOM Plan: CONTINUE DETOX
[2017-05-08] MEDS: ZOLPIDEM TARTRATE 10 MG TABLET (PARK CARE ONLY) PO PRN (22:52)
[2017-05-08] MEDS: chlordiazePOXIDE 5 MG CAPSULE PO SCH (22:52)
[2017-05-08] MEDS: THIAMINE HCL 100 MG TABLET (FP) PO SCH (22:52)
[2017-05-09] MEDS: chlordiazePOXIDE 5 MG CAPSULE PO SCH ×3 (06:07→20:18)
[2017-05-09] MEDS: PRENATAL VITAMINS W/ FOLIC ACID TABLET (FP) PO SCH (10:44)
[2017-05-09] MEDS: NICOTINE 14 MG/24 HOURS TOPICAL PATCH TD SCH (10:44)
--- NOTE | 2017-05-09 14:59 | PN ---
S Progress Note (SOAP) Subjective: alert oriented x 3 steady gait, tolerates food and fluid well, no acute distress , social with peers denies withdrawal sx Objective: 05/09/17 14:58 Vital Signs Temperature 97.3 F L 05/09/17 09:54 Pulse Rate 81 05/09/17 09:54 Respiratory Rate 20 05/09/17 09:54 Blood Pressure 121/74 05/09/17 09:54 O2 Sat by Pulse Oximetry (%) Laboratory Last Values WBC 5.2 K/mm3 (4.0-10.0) 05/07/17 08:00 RBC 4.62 M/mm3 (4.00-5.60) 05/07/17 08:00 Hgb 14.4 GM/dL (11.7-16.9) 05/07/17 08:00 Hct 39.7 % (35.4-49) 05/07/17 08:00 MCV 86.0 fl (80-96) 05/07/17 08:00 MCH 31.2 pg (25.7-33.7) 05/07/17 08:00 MCHC 36.3 g/dl (32.0-35.9) H 05/07/17 08:00 RDW 13.9 % (11.9-15.9) 05/07/17 08:00 Plt Count 258 K/MM3 (134-434) 05/07/17 08:00 MPV 8.9 fl (7.5-11.1) 05/07/17 08:00 Sodium 142 mmol/L (136-145) 05/07/17 08:00 Potassium 3.7 mmol/L (3.5-5.1) 05/07/17 08:00 Chloride 107 mmol/L (98-107) 05/07/17 08:00 Carbon Dioxide 29 mmol/L (21-32) 05/07/17 08:00 Anion Gap 6 (8-16) L 05/07/17 08:00 BUN 9 mg/dL (7-18) D 05/07/17 08:00 Creatinine 0.9 mg/dL (0.7-1.3) 05/07/17 08:00 Creat Clearance w eGFR > 60 (>60) 05/07/17 08:00 Random Glucose 106 mg/dL (74-106) D 05/07/17 08:00 Calcium 8.0 mg/dL (8.5-10.1) L 05/07/17 08:00 Total Bilirubin 0.6 mg/dL (0.2-1.0) D 05/07/17 08:00 AST 18 U/L (15-37) D 05/07/17 08:00 ALT 21 U/L (12-78) D 05/07/17 08:00 Alkaline Phosphatase 47 U/L (45-117) 05/07/17 08:00 Total Protein 6.6 g/dl (6.4-8.2) 05/07/17 08:00 Albumin 3.2 g/dl (3.4-5.0) L 05/07/17 08:00 Urine Color Ltyellow 05/07/17 00:05 Urine Appearance Clear 05/07/17 00:05 Urine pH 9.0 (5.0-8.0) H D 05/07/17 00:05 Ur Specific [place] 1.011 (1.001-1.035) 05/07/17 00:05 Urine Protein Negative (NEGATIVE) 05/07/17 00:05 Urine Glucose (UA) Negative (NEGATIVE) 05/07/17 00:05 Urine Ketones Negative (NEGATIVE) 05/07/17 00:05 Urine Blood Negative (NEGATIVE) 05/07/17 00:05 Urine Nitrite Negative (NEGATIVE) 05/07/17 00:05 Urine Bilirubin Negative (NEGATIVE) 05/07/17 00:05 Urine Urobilinogen Negative mg/dL (0.2-1.0) 05/07/17 00:05 Ur Leukocyte Esterase Negative (NEGATIVE) 05/07/17 00:05 RPR Titer Nonreactive (NONREACTIVE) 05/07/17 08:00 Hep C Ab Diagnostic 0.1 s/co ratio (0.0-0.9) 05/07/17 08:00 lab noted Assessment: 05/09/17 14:58 mild withdrawal sx Plan: medically supervised detox
[2017-05-09] MEDS: THIAMINE HCL 100 MG TABLET (FP) PO SCH (22:10)
[2017-05-09] MEDS: chlordiazePOXIDE HCL 10 MG CAPSULE PO SCH (22:10)
[2017-05-09] MEDS: ZOLPIDEM TARTRATE 10 MG TABLET (PARK CARE ONLY) PO PRN (22:10)
[2017-05-10] MEDS: chlordiazePOXIDE HCL 10 MG CAPSULE PO SCH ×2 (06:14→11:06)
[2017-05-10 07:04] VITALS: BP 128/74; PULSE 74; TEMP 97.4
--- NOTE | 2017-05-10 09:13 | DS ---
[facility] Detox Discharge Summary Admission Date: 05/06/17 Discharge Date: 05/10/17 - History Present History: Alcohol Dependence Additional Comments: 47 years old male admitted for alcohol detox completed detox regimen, patient tolerated well denies withdrawal sx denies pain alert oriented x 3 steady gait cardiac [id number] lung clear bilaterally abdomen soft none tenderness extremities full range of motion patient wants to go to recovery program today begin sobriety journey - Physical Exam Results Vital Signs: Vital Signs Temperature 97.4 F L 05/10/17 07:03 Pulse Rate 74 05/10/17 07:03 Respiratory Rate 19 05/10/17 07:03 Blood Pressure 128/74 05/10/17 07:03 O2 Sat by Pulse Oximetry (%) Pertinent Admission Physical Exam Findings: withdrawal sx Vital Signs Temperature 97.4 F L 05/10/17 07:03 Pulse Rate 74 05/10/17 07:03 Respiratory Rate 19 05/10/17 07:03 Blood Pressure 128/74 05/10/17 07:03 O2 Sat by Pulse Oximetry (%) Laboratory Last Values WBC 5.2 K/mm3 (4.0-10.0) 05/07/17 08:00 RBC 4.62 M/mm3 (4.00-5.60) 05/07/17 08:00 Hgb 14.4 GM/dL (11.7-16.9) 05/07/17 08:00 Hct 39.7 % (35.4-49) 05/07/17 08:00 MCV 86.0 fl (80-96) 05/07/17 08:00 MCH 31.2 pg (25.7-33.7) 05/07/17 08:00 MCHC 36.3 g/dl (32.0-35.9) H 05/07/17 08:00 RDW 13.9 % (11.9-15.9) 05/07/17 08:00 Plt Count 258 K/MM3 (134-434) 05/07/17 08:00 MPV 8.9 fl (7.5-11.1) 05/07/17 08:00 Sodium 142 mmol/L (136-145) 05/07/17 08:00 Potassium 3.7 mmol/L (3.5-5.1) 05/07/17 08:00 Chloride 107 mmol/L (98-107) 05/07/17 08:00 Carbon Dioxide 29 mmol/L (21-32) 05/07/17 08:00 Anion Gap 6 (8-16) L 05/07/17 08:00 BUN 9 mg/dL (7-18) D 05/07/17 08:00 Creatinine 0.9 mg/dL (0.7-1.3) 05/07/17 08:00 Creat Clearance w eGFR > 60 (>60) 05/07/17 08:00 Random Glucose 106 mg/dL (74-106) D 05/07/17 08:00 Calcium 8.0 mg/dL (8.5-10.1) L 05/07/17 08:00 Total Bilirubin 0.6 mg/dL (0.2-1.0) D 05/07/17 08:00 AST 18 U/L (15-37) D 05/07/17 08:00 ALT 21 U/L (12-78) D 05/07/17 08:00 Alkaline Phosphatase 47 U/L (45-117) 05/07/17 08:00 Total Protein 6.6 g/dl (6.4-8.2) 05/07/17 08:00 Albumin 3.2 g/dl (3.4-5.0) L 05/07/17 08:00 Urine Color Ltyellow 05/07/17 00:05 Urine Appearance Clear 05/07/17 00:05 Urine pH 9.0 (5.0-8.0) H D 05/07/17 00:05 Ur Specific [place] 1.011 (1.001-1.035) 05/07/17 00:05 Urine Protein Negative (NEGATIVE) 05/07/17 00:05 Urine Glucose (UA) Negative (NEGATIVE) 05/07/17 00:05 Urine Ketones Negative (NEGATIVE) 05/07/17 00:05 Urine Blood Negative (NEGATIVE) 05/07/17 00:05 Urine Nitrite Negative (NEGATIVE) 05/07/17 00:05 Urine Bilirubin Negative (NEGATIVE) 05/07/17 00:05 Urine Urobilinogen Negative mg/dL (0.2-1.0) 05/07/17 00:05 Ur Leukocyte Esterase Negative (NEGATIVE) 05/07/17 00:05 RPR Titer Nonreactive (NONREACTIVE) 05/07/17 08:00 Hep C Ab Diagnostic 0.1 s/co ratio (0.0-0.9) 05/07/17 08:00 lab noted - Treatment Hospital Course: Detox Protocol Followed, Detoxed Safely, Responded well, Discharged Condition Good, Rehab Referral Accepted Patient has Accepted a Rehab Referral to: [facility] - Medication Discharge Medications: Ambulatory Orders NK [No Known Home Medication] 03/13/17 - Diagnosis (1) Alcohol dependence with uncomplicated withdrawal Current Visit: Yes Status: Acute - AMA Did Patient Leave Against Medical Advice: No
[2017-05-10] MEDS: NICOTINE 14 MG/24 HOURS TOPICAL PATCH TD SCH (11:06)
[2017-05-10] MEDS: PRENATAL VITAMINS W/ FOLIC ACID TABLET (FP) PO SCH (11:06)
== END 2017-05-10 12:07 | disposition home or self-care (01) | DRG 774 ==
LOC: YASAS 12:08 → Y6N 18:29
PROVIDERS: ADMIT Internal Medicine; ATTEND Internal Medicine
PROC: HZ2ZZZZ Detoxification Services for Substance Abuse Treatment (ICD-10-PCS; principal; 2017-05-06)
DX: F10.230 Alcohol dependence with withdrawal, uncomplicated (principal); F14.20 Cocaine dependence, uncomplicated; F19.24 Other psychoactive substance dependence with psychoactive substance-induced mood disorder; F41.9 Anxiety disorder, unspecified; G47.00 Insomnia, unspecified; Z59.0 Homelessness
CPT/HCPCS: 36415; 80053; 81003; 85027; 86593; 93005; 93010